=== PATIENT | female | born 1985 | race Caucasian/White ===

== ENCOUNTER 2022-05-06 10:38 | Emergency (ER) | payer MEDICAID, SELFPAY ==
--- NOTE | ~2022-05-06 | CT_ITS ---
EXAMINATION: CT abdomen pelvis w con DATE: 05/06/2022 12:27 INDICATION: Abdominal pain. Vomiting. Fever. TECHNIQUE: Computed tomography (CT) of the abdomen and pelvis was performed with 100 mL Omnipaque 350 intravenous contrast. Automated exposure control and iterative reconstruction technique were employe d. The dose-length product was 207.86 mGy-cm. COMPARISON: None. FINDINGS: The visualized portions of the lung bases are clear without pneumonia or pleural effusion. The heart size is normal. No pericardial effusion. There is a 2.3 cm hypodense mass with hyperdense f ocus in left hepatic lobe. The gallbladder, spleen, pancreas, and adrenal glands are normal. There ar e cysts in the kidneys measuring up to 11 mm on the left. There is an intrauterine device in expected position. There are no dilated loops of bowel. The colon is decompressed. The appendix is normal. Th ere are no pathologically enlarged lymph nodes. There is no free intraperitoneal fluid. The bones are unremarkable. IMPRESSION: 1. 2.3 cm liver mass, probably benign. Abdomen MRI without and with contrast is recommended. Reviewed, dictated and finalized at [facility].
--- NOTE | 2022-05-06 10:42 | ED.LOWEXIN ---
HPI - Extremity Injury (Lower) General Stated Complaint: muscle cramps, leg pain Time Seen by Provider: 05/06/22 10:42 Related Data Allergies Allergy/AdvReac Type Severity Reaction Status Date / Time Penicillins Allergy Mild HIVES Unverified 11/04/08 13:37 Discharge Plan Discharge Follow-up/Referrals: UNKNOWN,DOCTOR [Primary Care Provider] -
[2022-05-06 10:44] VITALS: BP 130/81; PULSE 81; RESP 17; TEMP 36.1; O2SAT 100
--- NOTE | 2022-05-06 10:47 | ED.NAVMDI ---
HPI - Nausea/Vomiting/Diarrhea General Chief complaint: Nausea/Vomiting/Diarrhea Stated complaint: muscle cramps, leg pain Time Seen by Provider: 05/06/22 10:42 Source: patient Mode of arrival: ambulatory History of Present Illness HPI Narrative: 36-year-old female with no significant past medical history presents to the ER with a 4 hour history of -- nausea with multiple episodes of vomiting -- 2 episodes of watery diarrhea -- epigastric pain. No exacerbating or relieving factors. -- Muscle cramps No fever. MD elicited complaint: nausea, vomiting and diarrhea Onset (ago): hour(s) ( started 4 hours ago) Description of vomiting: watery Description of diarrhea: watery Associated nausea: Yes Associated abdominal pain: Yes Location of pain: epigastric Radiation: does not radiate Pain consistency: constant Severity: mild Quality: aching Exacerbating factors: none Relieving factors: none Associated symptoms: myalgias Related Data Allergies Allergy/AdvReac Type Severity Reaction Status Date / Time Penicillins Allergy Mild HIVES Verified 05/06/22 11:01 Review of Systems Review of Systems: All systems reviewed & are unremarkable except as noted in HPI and below Constitutional: Constitutional: Reports as per HPI and Reports no additional constitutional complaints Eyes: Eyes: Reports as per HPI and Reports no additional eye complaints ENT: Reports system reviewed and no additional complaints, except as documented and Reports as per HPI Cardiovascular: Cardiovascular: Reports as per HPI and Reports no additional cardiovascular complaints Respiratory: Respiratory: Reports as per HPI and Reports no additional respiratory complaints Gastrointestinal: Gastrointestinal: Reports as per HPI, Reports no additional gastrointestinal complaints, Reports change in bowel habits, Reports diarrhea, Reports nausea and Reports vomiting Genitourinary: Genitourinary: Reports no additional female genitourinary complaints and Reports as per HPI Musculoskeletal: Musculoskeletal: Reports no additional musculoskeletal complaints and Reports as per HPI Integumentary/Breasts: Skin/Breast: Reports system reviewed and no additional complaints, except as docu and Reports as per HPI Neurologic: Reports system reviewed and no additional complaints, except as documented and Reports as per HPI Psychiatric: Psychiatric: Reports no additional psychiatric complaints and Reports as per HPI Endocrine: Endocrine: Reports no additional endocrine complaints and Reports as per HPI Hematologic/Lymphatic: Hematologic/Lymphatic: Reports no additional hematologic/lymphatic complaints and Reports as per HPI Allergic/Immunologic: Allergic/Immunologic: Reports no additional allergic/immunologic complaints and Reports as per HPI Exam Const: General: cooperative, healthy appearing and comfortable HENMT: Head: normal to inspection, normocephalic and atraumatic Ears: hearing grossly normal bilaterally Face/Nose/Sinus: Normal external nose present and Normal nares present Face and sinus: normal facial exam, sinuses nontender and face symmetric Mouth: Yes Normal oral and palatal mucosa present and Yes lip normal Throat: posterior oropharynx normal Eyes: General: appearance normal, both eyes and all related structures EOM: EOMs intact bilaterally Neck: Neck: normal visual inspection, full ROM, no lymphadenopathy and no meningeal signs Chest: Chest palpation & inspection: normal inspection of the chest Breast/axilla inspection: normal inspection of the breasts Resp: Effort & Inspection: normal respiratory effort Auscultation: clear to auscultation bilaterally Cardio: Jugular venous distension: no JVD Palpation: normal PMI Rate: regular rate Rhythm: regular rhythm Heart sounds: S1 normal heart sound present and S2 normal heart sound present GI: Inspection: normal to inspection Auscultation: normal bowel sounds : General: Yes bimanual renal exam normal bilate
[2022-05-06 10:48] VITALS: BP 130/81; PULSE 82; RESP 16; TEMP 36.5; O2SAT 100
[2022-05-06] MEDS: ONDANSETRON HCL ODT 4 MG TABLET PO (11:02)
[2022-05-06 11:09] LABS: Basophils Absolute Auto 0.05 K/mm3 (0.00-0.10); Basophils Percent Auto 0.3 % (0.0-1.0); Eosinophils Absolute Auto 0.03 K/mm3 (0.02-0.50); Eosinophils Percent Auto 0.2 % (1.0-6.0); Hematocrit 38.9 % (35.0-49.0); Hemoglobin 13.1 g/dL (12.0-15.0); Immature Granulocyte Absolute 0.07 K/mm3 (0.00-0.00); Immature Granulocyte Percent A 0.5 % (0.0-0.0); Lymphocytes Absolute Auto 1.37 K/mm3 (1.10-4.50); Lymphocytes Percent Auto 8.9 % (18.0-42.0); Mean Corpuscular HGB Conc 33.7 g/dL (32.0-36.0); Mean Corpuscular Hemoglobin 31.8 pg (27.0-31.0); Mean Corpuscular Volume 94.4 fL (78.0-102.0); Mean Platelet Volume 12.3 fl (9.2-11.8); Monocytes Absolute Auto 0.57 K/mm3 (0.10-0.90); Monocytes Percent Auto 3.7 % (2.0-11.0); Neutrophils Absolute Auto 13.3 K/mm3 (1.7-7.2); Neutrophils Percent Auto 86.4 % (50.0-70.0); Platelet Count Result 268 K/mm3 (150-420); Red Blood Count 4.12 M/mm3 (4.20-5.40); Red Cell Distribution Width 14.1 % (11.6-14.4); White Blood Count 15.4 K/mm3 (4.8-10.8)
[2022-05-06 11:10] LABS: Appearance Urine Clear (Clear); Bilirubin Urine Negative (Negative); Blood Urine Negative (Negative); Glucose Urine UA Negative (Negative); Ketones Urine Negative (Negative); Leukocyte Esterase Ur Trace (Negative); Nitrate Urine Negative (Negative); Protein Urine 2+ (Negative); Urobilinogen Urine 0.2 mg/dL (0.2-1.0); pH Urine 8.5 (5.0-8.0)
[2022-05-06 11:12] LABS: Pregnancy On Board Control Positive; Urine Pregnancy Test Negative
[2022-05-06 11:16] LABS: Add Urine Microscopic? YES; Bacteria Urine 1+ /hpf; Color Urine Light Yellow (Yellow); RBC Urine 0-2 /hpf (0-2); Squamous Epithelial Cell Urine Moderate /hpf (Few)
--- NOTE | 2022-05-06 11:21 | PC.NURSE ---
patient states nausea is better, provided water at this time and warm blanket
[2022-05-06 11:24] LABS: Alanine Aminotransferase 22 U/L (14-59); Albumin Level 3.9 g/dL (3.4-5.0); Alkaline Phosphatase 77 U/L (46-116); Anion Gap 10 mmol/L (8-16); Aspartate Amino Transferase 19 U/L (15-37); Bilirubin,Total 0.5 mg/dL (0.00-1.00); Blood Urea Nitrogen 12 mg/dL (7-18); Carbon Dioxide 25 mmol/L (21-32); Chloride 108 mmol/L (98-108); Estimated Glomerular Filt Rate > 60; Glucose 121 mg/dL (70-99); Osmolality Calculated 296 mOsm/kg (285-295); Potassium 3.3 mmol/L (3.5-5.1); Sodium 143 mmol/L (136-145); Total Protein 7.5 g/dL (6.4-8.2)
[2022-05-06 11:27] LABS: Lipase 87 U/L (73-393)
[2022-05-06 11:32] LABS: Lactic Acid Reflex 2.1 mmol/L (0.4-2.0)
[2022-05-06] MEDS: HYDROcodone/acetaminophen (*CRX) 5-325 MG TABLET 1 TAB PO (12:08)
[2022-05-06] MEDS: LACTATED RINGERS 1,000 ML 999 ML IV CONT (12:09)
[2022-05-06 13:31] VITALS: BP 129/79; PULSE 81; RESP 16; TEMP 37; O2SAT 99
[2022-05-06 13:33] VITALS: BP 129/79; PULSE 61; RESP 16; TEMP 36.4; O2SAT 100
[2022-05-06 14:04] LABS: Reflex Lactic Acid Yes or No Add Lactic
== END 2022-05-06 13:35 | disposition home or self-care (01) ==
PROVIDERS: Emergency Provider Internal Medicine Critical Care Medicine
DX: K52.9 Noninfective gastroenteritis and colitis, unspecified (principal); E27.9 Disorder of adrenal gland, unspecified
CPT/HCPCS: 36415; 74177; 80053; 81001; 81025; 83605; 83690; 85025; 96360; 99284; A9270; J7120; Q9967

== ENCOUNTER 2023-10-27 03:16 | Emergency (ER) | payer BC, SELFPAY ==
--- NOTE | ~2023-10-27 | CT_ITS ---
EXAMINATION: CT cervical spine wo con DATE: 10/27/2023 03:54 INDICATION: Fall. Left posterior scalp laceration TECHNIQUE: Computed tomography (CT) of the cervical spine was performed without intravenous contrast. Automated exposure control and iterative reconstruction technique were employed. Exam dose: 534.23 mGy-cm total exam DLP. COMPARISON: None FINDINGS: C1 and C2 are normally aligned and the odontoid process is intact. There is moderate loss of disc space height and posterior spurring at C5-6 consistent with moderately prominent degenerative disc disease. The remaining cervical interspaces appear well preserved. No fracture or dislocation or locked facet or prevertebral soft tissue swelling.. IMPRESSION: Moderate degenerative disc disease at C5-6 No fracture or dislocation or locked facet Reviewed, dictated and finalized at [facility]. Reviewed, dictated and finalized at [facility].
--- NOTE | ~2023-10-27 | CT_ITS ---
EXAMINATION: CT brain wo con DATE: 10/27/2023 03:53 INDICATION: Fall. Left posterior scalp laceration TECHNIQUE: Computed tomography (CT) of the head was performed without intravenous contrast. The mA wa s adjusted according to patient size. Iterative reconstruction technique was employed. Exam dose: 60 5.33 mGy-cm total exam DLP. COMPARISON: None FINDINGS: Posterior left parietal occipital cephalohematoma. No skull fracture or could or contrecoup intracranial traumatic injury is evident. Mastoid air cells and included paranasal sinuses are unremarkable. Bilateral vertebral artery and bilateral carotid siphon internal carotid artery calcifications. No intracranial mass lesion or hemorrhage or cerebrovascular accident, midline shift or mass effect. Normal ventricular size. IMPRESSION: Left posterior parietal occipital cephalohematoma; no skull fracture or acute intracrania l finding Cerebral atherosclerosis; no acute intracranial finding Reviewed, dictated and finalized at [facility]. Reviewed, dictated and finalized at [facility]. IMPRESSION: Left posterior parietal occipital cephalohematoma; no skull fractur e or acute intracranial finding Cerebral atherosclerosis; no acute intracranial finding
[2023-10-27 03:20] VITALS: BP 112/90; PULSE 98; RESP 18; TEMP 36.6; O2SAT 98
--- NOTE | 2023-10-27 03:30 | ED.WOUNDLAC ---
HPI - Wound/Laceration General Chief Complaint: Wound/Laceration Stated Complaint: Fall Time Seen by Provider: 10/27/23 03:28 Source: patient Mode of arrival: ambulatory Limitations: no limitations History of Present Illness HPI narrative: Patient is a 37-year-old female with a left parietal scalp laceration. Patient was [place] the bar and fell and hit her head at the bar. This happened prior to arrival. Onset (ago): minute(s) (30) Location: scalp ( Left posterior/side) Place: other ( at the bar) Patient tetanus UTD: Yes ( patient claims she has had 1 in the past 5 years) Context: accidental Associated symptoms: none Treatments prior to arrival: bandage Related Data Home Medications Medication Instructions Recorded Confirmed No Home Medications 10/27/23 10/27/23 Allergies Allergy/AdvReac Type Severity Reaction Status Date / Time Penicillins Allergy Mild HIVES Verified 05/06/22 11:01 Review of Systems Review of Systems: All systems reviewed & are unremarkable except as noted in HPI and below Constitutional: Constitutional: Reports no additional constitutional complaints Eyes: Eyes: Reports no additional eye complaints ENT: Reports system reviewed and no additional complaints, except as documented Cardiovascular: Cardiovascular: Reports no additional cardiovascular complaints Respiratory: Respiratory: Reports no additional respiratory complaints Gastrointestinal: Gastrointestinal: Reports no additional gastrointestinal complaints Genitourinary: Genitourinary: Reports no additional female genitourinary complaints Musculoskeletal: Musculoskeletal: Reports no additional musculoskeletal complaints Integumentary/Breasts: Skin/Breast: Reports system reviewed and no additional complaints, except as docu Neurologic: Reports system reviewed and no additional complaints, except as documented Psychiatric: Psychiatric: Reports no additional psychiatric complaints Endocrine: Endocrine: Reports no additional endocrine complaints Hematologic/Lymphatic: Hematologic/Lymphatic: Reports no additional hematologic/lymphatic complaints Allergic/Immunologic: Allergic/Immunologic: Reports no additional allergic/immunologic complaints Exam Const: General: healthy appearing Nutritional Appearance: well nourished Orientation/consciousness: patient oriented x3 Other: alcohol intoxicated and belligerent HENMT: Head: normal to inspection Ears: external ears normal Face/Nose/Sinus: Normal external nose present Eyes: Conjunctivae: conjunctivae normal Pupils: Equal, round and reactive pupils present EOM: EOMs intact bilaterally Neck: Neck: normal visual inspection Chest: Chest palpation & inspection: normal inspection of the chest Resp: Effort & Inspection: normal respiratory effort and not labored Auscultation: clear to auscultation bilaterally Cardio: Rate: regular rate Rhythm: regular rhythm Heart sounds: no murmurs GI: Inspection: non-distended GI Palp: Yes Soft to palpation, No Tenderness to palpation present (GI) and No Guarding due to palpation present (GI) Auscultation: normal bowel sounds Back/Spine/Pelvis: Back: no CVA tenderness Skin: General skin exam: normal color Rashes: no rashes Wounds: wound noted and wounds noted Other: left parietal / posterior scalp 4 cm linear laceration with bleeding Neuro: General: patient oriented x3 Cranial nerves: Yes Nystagmus not present Speech: normal speech Extrem: General: normal to inspection Psych: Mental Status: mental status grossly normal Affect: normal affect Attitude: not cooperative Other: patient is being difficult and uncooperative due to alcohol intoxication Course Vital Signs Vital signs: Vital Signs Temperature 36.6 C 10/27/23 03:20 Pulse Rate 98 10/27/23 03:20 Respiratory Rate 18 10/27/23 03:20 Blood Pressure 112/90 10/27/23 03:20 Pulse Oximetry 98 10/27/23 03:20 Oxygen Delivery Room Air
[2023-10-27 04:15] VITALS: BP 124/85; PULSE 88; RESP 18; TEMP 36.6; O2SAT 98
== END 2023-10-27 04:15 | disposition home or self-care (01) ==
PROVIDERS: Emergency Provider Emergency Medicine
DX: S01.01XA Laceration without foreign body of scalp, initial encounter (principal); W19.XXXA Unspecified fall, initial encounter
CPT/HCPCS: 12001; 70450; 72125; 99284

== ENCOUNTER 2024-01-27 11:38 | Emergency (ER) | payer BC, SELFPAY ==
[2024-01-27 11:40] VITALS: BP 132/91; PULSE 95; RESP 20; TEMP 37.1; O2SAT 96
--- NOTE | 2024-01-27 11:48 | ED.LOWEXIN ---
HPI - Extremity Injury (Lower) General Chief Complaint: Extremity Injury, Lower Stated Complaint: left calf injury Time Seen by Provider: 01/27/24 11:47 Source: patient Mode of arrival: ambulatory Limitations: no limitations History of Present Illness HPI Narrative: Patient is a 38-year-old female with a left calf injury while playing in [place]. She is moving around and stepped up onto a surface and felt a pop in the left calf region. No concerns for DVT at this time. This was an acute event. She can walk on the lower extremity but typically on the Tippy toes. This happened yesterday. complaint: leg injury ( Left calf) Onset (ago): day(s) (2) Type of Injury: other ( left calf injury after playing in the [place]) Place: street/outdoors Severity: moderate Severity scale (1-10): 4 Relieving factors: immobilization Exacerbating factors: movement and palpation Context: jumping Associated symptoms: snap/pop sensation and able to partially bear weight Other symptoms: none Related Data Allergies Allergy/AdvReac Type Severity Reaction Status Date / Time Penicillins Allergy Mild HIVES Verified 01/27/24 11:41 Review of Systems Review of Systems: All systems reviewed & are unremarkable except as noted in HPI and below Constitutional: Constitutional: Reports no additional constitutional complaints Eyes: Eyes: Reports no additional eye complaints ENT: Reports system reviewed and no additional complaints, except as documented Cardiovascular: Cardiovascular: Reports no additional cardiovascular complaints Respiratory: Respiratory: Reports no additional respiratory complaints Gastrointestinal: Gastrointestinal: Reports no additional gastrointestinal complaints Genitourinary: Genitourinary: Reports no additional female genitourinary complaints Musculoskeletal: Musculoskeletal: Reports no additional musculoskeletal complaints Integumentary/Breasts: Skin/Breast: Reports system reviewed and no additional complaints, except as docu Neurologic: Reports system reviewed and no additional complaints, except as documented Psychiatric: Psychiatric: Reports no additional psychiatric complaints Endocrine: Endocrine: Reports no additional endocrine complaints Hematologic/Lymphatic: Hematologic/Lymphatic: Reports no additional hematologic/lymphatic complaints Allergic/Immunologic: Allergic/Immunologic: Reports no additional allergic/immunologic complaints Exam Const: General: healthy appearing Nutritional Appearance: well nourished Orientation/consciousness: patient oriented x3 HENMT: Head: normal to inspection Ears: external ears normal Face/Nose/Sinus: Normal external nose present Eyes: Conjunctivae: conjunctivae normal Pupils: Equal, round and reactive pupils present EOM: EOMs intact bilaterally Neck: Neck: normal visual inspection Chest: Chest palpation & inspection: normal inspection of the chest Resp: Effort & Inspection: normal respiratory effort and not labored Auscultation: clear to auscultation bilaterally Cardio: Rate: regular rate Rhythm: regular rhythm Heart sounds: no murmurs GI: Inspection: non-distended GI Palp: Yes Soft to palpation and No Tenderness to palpation present (GI) Auscultation: normal bowel sounds : General: Yes bladder normal to palpation Back/Spine/Pelvis: Back: no CVA tenderness Skin: General skin exam: normal color Rashes: no rashes Wounds: no wounds Neuro: General: patient oriented x3 Cranial nerves: Yes Nystagmus not present Speech: normal speech Extrem: General: normal to inspection, no clubbing, cyanosis or edema and no pedal edema Other: left lower calf has tenderness at the distal gastrocnemius; Achilles tendon is intact grossly; slight opening to the gastroc muscle with tenderness Psych: Mental Status: mental status grossly normal Affect: normal affect Attitude: cooperative Course Vital Signs Vital signs: Vital Signs Temperature 37.1 C /07
[2024-01-27 12:06] VITALS: BP 132/91; PULSE 95; RESP 20; TEMP 37.1; O2SAT 96
== END 2024-01-27 12:06 | disposition home or self-care (01) ==
LOC: CHSED 12:04
PROVIDERS: Emergency Provider Emergency Medicine
DX: S86.812A Strain of other muscle(s) and tendon(s) at lower leg level, left leg, initial encounter (principal); X58.XXXA Exposure to other specified factors, initial encounter; Y92.838 Other recreation area as the place of occurrence of the external cause
CPT/HCPCS: 99283

== ENCOUNTER 2025-04-21 09:26 | Emergency (ER) | payer BC, SELFPAY ==
[2025-04-21] VITALS (7 sets, daily range): BP systolic 125–131; BP diastolic 87–99; PULSE 99; RESP 20; TEMP 36.5; O2SAT 98–100
--- NOTE | ~2025-04-21 | CT_ITS ---
Exam: CT abdomen and pelvis without contrast Clinical History: [Right flank pain. ] Comparison: [ 05/06/2022] Technique: Multiple axial CT images of the abdomen and pelvis were obtained without IV contrast. Sagittal and coronal reformatted images were obtained. FINDINGS: Lung bases: [Clear ] Liver: [ No mass.] [ No intrahepatic biliary duct dilatation.] Gallbladder: [ No wall thickening or stones.] Common bile duct: [ Normal caliber.] [ No stones.] Spleen: [ Within normal limits.] Pancreas: [ No mass. No pancreatic fluid collection.] Adrenals: [ No masses.] Kidneys: [ No masses. No hydronephrosis.][ Small amount of fat stranding about the right kidney.] No CT evidence for renal, or ureteral calculi. Lymph nodes: [ No adenopathy in the abdomen or pelvis.] Stomach, small bowel and colon: [ No bowel wall thickening or obstruction.] Peritoneum cavity: [ No mesenteric fat stranding or fluid.] Bladder: [ Small amount of nondependent air in the bladder.] No bladder calculi. Osseous structures: [ No acute fracture or destructive lesion.] [ Multilevel degenerative change in the visualized spine.] Abdominal aorta: [ No aneurysm.] Additional findings: [ None of significance.] IMPRESSION: 1. No CT evidence for renal, ureteral or bladder calculi. No hydronephrosis. 2. Small amount of fat stranding about the right kidney. Differential includes a fluid overload state, recently passed stone or infectious process. 3. Small amount of nondependent air in the bladder. Differential includes cystitis or recent instrumentation. Reviewed, dictated and finalized at location Q. IMPRESSION: 1. No CT evidence for renal, ureteral or bladder calculi. No hydronephrosis. 2. Small amount of fat stranding about the right kidney. Differential includes a fluid overload state, recently passed stone or infectious process. 3. Small amount of nondependent air in the bladder. Differential includes cysti tis or recent instrumentation.
--- NOTE | 2025-04-21 09:37 | ED_ITS ---
HPI - Female Genitourinary General Chief complaint: Urogenital-Female Stated complaint: uti symptoms Source: patient Mode of arrival: ambulatory Limitations: no limitations History of Present Illness HPI Narrative: 39-year-old female presents to the ED with a 5 day history of -- dysuria and hematuria. Increased frequency of micturition -- right flank pain. no radiation of the pain. Pain is worse with coughing and deep breathing. -- subjective fever -- nausea -- headache MD elicited complaint: dysuria, UTI and flank pain Onset (ago): day(s) ( 5 days) Location of symptoms: RLQ and flank Severity: moderate Female Urogenital Radiation: Non-Radiating Quality of pain: aching Consistency: constant Urinary symptoms: Dysuria, Urgency and Frequency Exacerbating factors: none Relieving factors: none Treatment prior to arrival: none Date of Last Menstrual Period: 04/12/25 Related Data Allergies Allergy/AdvReac Type Severity Reaction Status Date / Time Penicillins Allergy Mild HIVES Verified 04/21/25 09:28 Review of Systems 2 Review of Systems: All systems reviewed & are unremarkable except as noted in HPI and below Constitutional: Constitutional: Reports as per HPI, Reports no additional constitutional complaints and Reports chills Eyes: Eyes: Reports as per HPI and Reports no additional eye complaints ENT: Reports system reviewed and no additional complaints, except as documented and Reports as per HPI Cardiovascular: Cardiovascular: Reports as per HPI and Reports no additional cardiovascular complaints Respiratory: Respiratory: Reports as per HPI and Reports no additional respiratory complaints Gastrointestinal: Gastrointestinal: Reports as per HPI and Reports no additional gastrointestinal complaints Genitourinary: Genitourinary: Reports no additional female genitourinary complaints, Reports as per HPI, Reports hematuria, Reports dysuria and Reports flank pain Musculoskeletal: Musculoskeletal: Reports no additional musculoskeletal complaints and Reports as per HPI Integumentary/Breasts: Skin/Breast: Reports system reviewed and no additional complaints, except as docu and Reports as per HPI Neurologic: Reports system reviewed and no additional complaints, except as documented and Reports as per HPI Psychiatric: Psychiatric: Reports no additional psychiatric complaints and Reports as per HPI Endocrine: Endocrine: Reports no additional endocrine complaints and Reports as per HPI Hematologic/Lymphatic: Hematologic/Lymphatic: Reports no additional hematologic/lymphatic complaints and Reports as per HPI Allergic/Immunologic: Allergic/Immunologic: Reports no additional allergic/immunologic complaints and Reports as per HPI Exam 2 Narrative: blood pressure 131/99 Const: General: healthy appearing and no acute distress Nutritional Appearance: well nourished Orientation/consciousness: patient oriented x3 Limitations: no limitations HENMT: Head: normal to inspection Ears: external ears normal F gabino/Nose/Sinus: Normal external nose present Face and sinus: normal facial exam Mouth: Yes Normal oral and palatal mucosa present Throat: posterior oropharynx normal Eyes: Conjunctivae: conjunctivae normal Pupils: Equal, round and reactive pupils present EOM: EOMs intact bilaterally Direct Ophthalmoscopy: no photophobia Neck: Neck: normal visual inspection, no lymphadenopathy and no meningeal signs Chest: Chest palpation & inspection: normal inspection of the chest Resp: Effort & Inspection: normal respiratory effort Auscultation: clear to auscultation bilaterally Cardio: Rate: regular rate Rhythm: regular rhythm GI: GI Palp: Yes Soft to palpation Auscultation: normal bowel sounds O ther: tenderness right CVA angle./ Left flank : General: Yes CVA tenderness ( right CVA tenderness) on the right Back/Spine/Pelvis: Back: CVA tenderness Skin: General skin exam: normal color Rashes: no rashes Wounds: no wounds Neuro: General: patient oriented x3, moves all extremities, no meningeal signs, no focal motor deficits and CN's II-XI intact bilaterally Cranial nerves: Yes Nystagmus not present Speech: normal speech Gait exam (Neuro): Normal gait present Extrem: General: normal to inspection and no clubbing, cyanosis or edema Psych: Appearance: grossly normal Mental Status: mental status grossly normal Affect: normal affect Course Course Emergency Course: Dysuria/hematuria / increased frequency of micturition is suggestive of urinary tract infection. Right flank pain with tenderness in the CVA angle is suggestive of pyelonephritis. Patient was noted to have a positive UA with increased white cells, leukocyte Estrace and nitrite. CT of abdomen and pelvis revealed fat stranding around the right kidney. No stones noted. Vital Signs Vital signs: Vital Signs Temperature 36.5 C 04/21/25 09:30 Pulse Rate 99 04/21/25 09:30 Respiratory Rate 20 04/21/25 09:30 Blood Pressure 131/99 H 04/21/25 09:30 Pulse Oximetry 100 04/21/25 09:30 Oxygen Delivery Room Air 04/21/25 09:30 Temperature 36.5 C 04/21/25 09:30 Pulse Rate 99 04/21/25 09:30 Respiratory Rate 20 04/21/25 09:30 Blood Pressure 131/99 H 04/21/25 09:30 Pulse Oximetry 100 04/21/25 09:30 Oxygen Delivery Room Air 04/21/25 09:30 MDM - Female Genitourinary MDM Narrative Medical decision making narrative: Right pyelonephritis Differential Diagnosis Differential diagnosis: Likely urinary tract infection Medical Records Attestation: I reviewed the patient's medical records. Lab Data Attestation: I reviewed the patient's lab results. 04/21/25 09:51 04/21/25 09:51 Labs: Lab Results 04/21/25 04/21/25 Range/Units 09:40 09:51 WBC 11.9 H (4.8-10.8) K/mm3 RBC 4.11 L (4.20-5.40) M/mm3 Hgb 13.6 (12.0-15.0) g/dL Hct 40.9 (35.0-49.0) % MCV 99.5 (78.0-102.0) fL MCH 33.1 H (27.0-31.0) pg MCHC 33.3 (32-36) g/dL RDW 11.9 (11.6-14.4) % Plt Count 248 (150-420) K/mm3 MPV 10.9 (9.2-11.8) fl Immature Gran % (Auto) 0.5 H (0.0-0.0) % Neut % (Auto) 83.5 H (50.0-70.0) % Lymph % (Auto) 8.1 L (18.0-42.0) % [place] % (Auto) 7.3 (2.0-11.0) % Eos % (Auto) 0.3 L (1.0-6.0) % Baso % (Auto) 0.3 (0.0-1.0) % Lymph # (Auto) 0.96 L (1.10-4.50) K/mm3 [place] # (Auto) 0.86 (0.10-0.90) K/mm3 Eos # (Auto) 0.03 (0.02-0.50) K/mm3 Baso # (Auto) 0.03 (0.00-0.10) K/mm3 Abs Immat Gran (auto) 0.06 H (0.00-0.00) K/mm3 Absolute Neuts (auto) 9.91 H (1.70-7.20) K/mm3 Absolute Nucleated RBC 0.00 (0.00-0.00) K/mm3 Nucleated RBC % 0.0 (0-0.0) % Sodium 137 (137-145) mmol/L Potassium 3.6 (3.4-5.0) mmol/L Chloride 101 (98-107) mmol/L Carbon Dioxide 26 (22-30) mmol/L Anion Gap 10 (4-12) mmol/L BUN 7 (7-17) mg/dL Creatinine 0.77 (0.7-1.0) mg/dL Estim Creat Clear Calc 61 ml/min Estimated GFR > 60 (59 - ) Glucose 106 (65-110) mg/dL Calculated Osmolality 282 L (285-295) mOsm/kg Lactic Acid 0.8 (0.4-2.0) mmol/L Calcium 9.2 (8.4-10.2) mg/dL Total Bilirubin 0.4 (0.2-1.3) mg/dL AST 31 (14-36) U/L ALT 23 (6-35) U/L Alkaline Phosphatase 70 (38-126) U/L Total Protein 8.9 H (6.3-8.2) g/dL Albumin 4.3 (3.5-5.1) g/dL Lipase 27 (23-300) U/L Urine Color Yellow (Yellow) Urine Appearance Sl cloudy A (Clear) Urine pH 6.0 (5.0-8.0) Ur Specific [place] 1.025 H (1.010-1.020) Urine Protein 2+ H (Negative) Urine Glucose (UA) Negative (Negative) Urine Ketones Negative (Negative) Ur Blood (Man) 2+ H (Negative) Urine Nitrate Positive H (Negative) Urine Bilirubin Negative (Negative) Urine Urobilinogen 0.2 (0.2-1.0) mg/dL Leukocyte Esterase Rfl 2+ H (Negative) EPIFANIO/UL Urine RBC 6-10 H (0-2) /hpf Urine WBC 51-75 H (0-3) /hpf Ur Squamous Epith Cells Few (Few) /hpf Urine Bacteria 2+ H (None) /hpf Urine Test Negative Discharge Plan Discharge Clinical Impression: Pyelonephritis, Acute flank pain Patient Disposition: Home Condition: Stable Instructions: Antibiotic Form, Kidney Infection (ED) Patient Language: Latvian Prescriptions: New ciprofloxacin HCl [Cipro] 500 mg tablet 500 mg PO Q12H Qty: 14 0RF Follow-up/Referrals: Zeke Huston DO [Physician, Family Practice] Time of Disposition: 11:11
[2025-04-21 09:45] LABS: Add Urine Microscopic? YES; Glucose Urine UA Negative (Negative); Leukocyte Esterase Ur 2+ LEU/UL (Negative); Nitrate Urine Positive (Negative); Specific Grav Ur 1.025 (1.010-1.020)
[2025-04-21 09:52] LABS: Appearance Urine Sl Cloudy (Clear)
[2025-04-21 09:54] LABS: Hematocrit 40.9 % (35.0-49.0); Hemoglobin 13.6 g/dL (12.0-15.0); Immature Granulocyte Percent A 0.5 % (0.0-0.0); Lymphocytes Absolute Auto 0.96 K/mm3 (1.10-4.50); Mean Corpuscular HGB Conc 33.3 g/dL (32-36); Mean Corpuscular Hemoglobin 33.1 pg (27.0-31.0); Mean Corpuscular Volume 99.5 fL (78.0-102.0); Nucleated Red Blood Cells Absolute Auto 0.00 K/mm3 (0.00-0.00); Nucleated Red Blood Cells Perc 0.0 % (0-0.0); Platelet Count Result 248 K/mm3 (150-420); Red Blood Count 4.11 M/mm3 (4.20-5.40); White Blood Count 11.9 K/mm3 (4.8-10.8)
--- OUTSIDE RECORDS SUMMARY | 2025-04-21 10:02 | XMS_ITS | Clinical Summary ---
Author Organization [facility] Address [address] [place] [address] Phone Care Team Providers Care Tonal Regulator Name Role Phone Provider, None Primary Care Provider Unavailabl e Allergies Active Allergy Reactions Criticality Noted Date Comments Penicillins Hives Medium 09/05/2017 Pt was told she had an allergy to penicillins as a child Medications azithromycin (ZITHROMAX Z-AIDE) 250 MG TabletIndication s:Strep throat 2 tab(s) daily for 1 day, then 1 tab(s) daily for days 2-5. 6 Tab 11/23/2018 Active chlorhexidine (PERIDEX) 0.12 % Solution 15 mL by Swish & Spit route 2 times daily. 473 mL 09/22/2021 Active Active Problems No known active problems Social History Tobacco Use Types Packs/Day Years Used Date Smoking Tobacco: Never Smokeless Tobacco: Never Alcohol Use Standard Drinks/Week Comments Yes 0 (1 standard drink = 0.6 oz pur e alcohol) Comments No Sex and Gender Information Value Date Recorded Sex Assigned at Not on file Legal Sex Female 11:18 PM CDT Gender Identity Not on file Sexual Orientation Not on file Last Filed Vital Signs Vital Sign Reading Time Taken Comments Blood Pressure 141/92 09/22/2021 2:31 PM EXCHANGE FLOOR MANAGER Pulse 99 09/22/2021 2:31 PM EXCHANGE FLOOR MANAGER Temperature 36.2 C (97.2 F) 09/22/2021 2:30 PM EXCHANGE FLOOR MANAGER Respiratory Rate 20 09/22/2021 2:31 PM EXCHANGE FLOOR MANAGER Oxygen Saturation 99% 09/22/2021 2:31 PM EXCHANGE FLOOR MANAGER Inhaled Oxygen Concentration - - Weight 63.5 kg (140 lb) 09/22/2021 2:31 PM EXCHANGE FLOOR MANAGER Height 152.4 cm (5') 09/22/2021 2:31 PM EXCHANGE FLOOR MANAGER Body Mass Index 27.34 09/22/2021 2:31 PM EXCHANGE FLOOR MANAGER Plan of Treatment Health Maintenance Due Date Last Done Comments Hepatitis C Virus (HCV) Screening 1985 TdaP Immunization 1985 Hepatitis B Immunization (1 of 3 - 19+ 3-dose series) 2004 Pap Smear 2006 Human Papillomavirus (HPV) Immunization (1 - 3-dose SCDM series) 2012 Cervical Cancer Screening (CCS) 11/07/2015 HPV/Cotest 11/07/2015 Influenza Immunization (#1) 2025 SARS-COV-2 Immunization ( season) 2025 Respiratory Syncytial Virus (RSV) Immunization (Adult) (1 - 1-dose 75+ series) 2060 Meningococcal Immunization (ACWY) Aged Out No longer eligible based on patient's age to complete this topic Pneumococcal Immunization Combined Aged Out No longer eligible based on patient's age to complete this topic Rotavirus Immunization Aged Out No lo nger eligible based on patient's age to complete this topic Care Teams Tonal Regulator Relationship Specialty Start Date End Date Provider, None [place] PCP - General 08/22/18
--- OUTSIDE RECORDS SUMMARY | 2025-04-21 10:02 | XMS_ITS | Clinical Summary ---
Author Organization [facility] Address [address] [place] [address] Care Team Providers Care Network Operations Center Technician Name Role Phone Jose Carter MD Primary Care Provider [phone] Source Comments [facility],non-owned Affiliates and Associated Physician Practices is amultiple site organization consisting of ambulatory clinics and hospital sitesin [place], [place], [place] and [place]. This disclosure is being madepursuant to the Care Everywhere program and may not contain all information available regarding this patient. Last updated 18.[facility] Allergies Active Allergy Reactions Criticality Noted Date Comments Penicillins Urticaria Medium 09/05/2017 Pt was told she had an allergy to penicillins as a child Medications * Be aware that medications may not be up to date on this document. Alwaysverify current medications with the patient. No known medications Social History Tobacco Use Types Packs/Day Years Used Date Smoking Tobacco: Light Smoker Smokeless Tobacco: Never Comments No Sex and Gender Information Value Date Recorded Sex Assigned at Not on file Legal Sex Female 11:20 AM STEREO PLOTTER OPERATOR Gender Identity Not on file Sexual Orientation Not on file Last Filed Vital Signs Vital Sign Reading Time Taken Comments Blood Pressure 116/74 09/05/2017 2:11 PM STEREO PLOTTER OPERATOR Pulse 110 09/05/2017 2:11 PM STEREO PLOTTER OPERATOR Temperature 37.8 C (100 F) 09/05/2017 2:11 PM STEREO PLOTTER OPERATOR Respiratory Rate - - Oxygen Saturation 98% 09/05/2017 2:11 PM STEREO PLOTTER OPERATOR Inhaled Oxygen Concentration - - Weight 57.6 kg (127 lb) 09/05/2017 2:11 PM STEREO PLOTTER OPERATOR Height 152.4 cm (5') 09/05/2017 2:11 PM STEREO PLOTTER OPERATOR Body Mass Index 24.8 09/05/2017 2:11 PM STEREO PLOTTER OPERATOR Plan of Treatment Health Maintenance Due Date Last Done Comments HIV SCREENING 2000 HEPATITIS C SCREENING 11/02/2003 DTAP/TDAP/TD VACCINES (1 - Tdap) 2004 HEPATITIS B VACCINE (1 of 3 - 19+ 3-dose series) 2004 HPV VACCINE (1 - 3-dose SCDM series) 2012 DEPRESSION SCREENING 07/23/2024 COVID-19 VACCINE (1 - 2023-2 5 season) 2025 INFLUENZA VACCINE (#1) 2025 ZOSTER VACCINE (1 of 2) 11/07/2035 HIB VACCINE Aged Out No longer eligi ble based on patient's age to complete this topic MENINGOCOCCAL (Group B) VACC INE SHARED DECISION-MAKING Aged Out No longer eligibl e based on patient's age to complete this topic MENINGOCOCCAL GROUPS A/C/Y/W VACCINE Aged Out No longer eligible b ased on patient's age to complete this topic PNEUMOCOCCAL VACCINE Aged Out No long er eligible based on patient's age to complete this topic Insurance [place] [place] YOST [id number] [employer] Care Teams Network Operations Center Technician Relationship Specialty Start Date End Date Jose Carter MD [address] [place] [id number] PCP - General 02/25/21
--- OUTSIDE RECORDS SUMMARY | 2025-04-21 10:02 | XMS_ITS | Clinical Summary ---
Author Organization [address] Address [address] [place] [address] Care Team Providers Care Equipment Engineer Name Role Phone No, Physician Primary Care Provider [phone] Allergies Active Allergy Reactions Criticality Noted Date Comments Penicillins Medications azithromycin (ZITHROMAX) 250 mg tabletIndication s:Pharyngitis, unspecified etiology Take 2 tablets the first day, then 1 tablet daily for 4 days. 6 tablet 12/06/2020 Active Active Problems No known active problems Social History Tobacco Use Types Packs/Day Years Used Date Smoking Tobacco: Never Personal Safety Answer Date Recorded Getting School Help Needed Not on file 09/16 Comments Unknown Sex and Gender Information Value Date Recorded Sex Assigned at Not on file Legal Sex Female 6:54 PM KILN PACKER Gender Identity Not on file Sexual Orientation Not on file Obstetrics History Last Filed Vital Signs Vital Sign Reading Time Taken Comments Blood Pressure 110/70 12/06/2020 9:14 AM CDT Pulse 127 12/06/2020 9:14 AM CDT Temperature 36.3 C (97.4 F) 12/06/2020 9:14 AM CDT Respiratory Rate 16 12/06/2020 9:14 AM CDT Oxygen Saturation 98% 12/06/2020 9:14 AM CDT Inhaled Oxygen Concentration - - Weight 60 kg (132 lb 3.2 oz) 12/06/2020 9:14 AM CDT Height 152.4 cm (5') 12/06/2020 9:14 AM CDT Body Mass Index 25.82 12/06/2020 9:14 AM CDT Plan of Treatment Not on file Care Teams Equipment Engineer Relationship Specialty Start Date End Date No, Physician PCP - General 12/06/20
[2025-04-21 10:08] LABS: Pregnancy On Board Control Positive
[2025-04-21 10:15] LABS: Alanine Aminotransferase 23 U/L (6-35); Albumin Level 4.3 g/dL (3.5-5.1); Alkaline Phosphatase 70 U/L (38-126); Anion Gap 10 mmol/L (4-12); Aspartate Amino Transferase 31 U/L (14-36); Bilirubin,Total 0.4 mg/dL (0.2-1.3); Blood Urea Nitrogen 7 mg/dL (7-17); Calcium 9.2 mg/dL (8.4-10.2); Carbon Dioxide 26 mmol/L (22-30); Chloride 101 mmol/L (98-107); Estimated CRCL calculation 61 ml/min; Estimated Glomerular Filt Rate > 60; Glucose 106 mg/dL (65-110); Lipase 27 U/L (23-300); Osmolality Calculated 282 mOsm/kg (285-295); Potassium 3.6 mmol/L (3.4-5.0); Sodium 137 mmol/L (137-145); Total Protein 8.9 g/dL (6.3-8.2)
[2025-04-21] MEDS: CIPROFLOXACIN 500 MG TAB PO (10:16)
[2025-04-21] MEDS: KETOROLAC 30 MG/ML VIAL (*BKC) IM (10:16)
--- OUTSIDE RECORDS SUMMARY | 2025-04-21 10:37 | XMS_ITS | Clinical Summary ---
Author Organization [facility] Address [address] [place] [address] Care Team Providers Care Twisthand Name Role Phone Jose Carter MD Primary Care Provider [phone] Source Comments [facility],non-owned Affiliates and Associated Physician Practices is amultiple site organization consisting of ambulatory clinics and hospital sitesin [place], [place], [place] and [place]. This disclosure is being madepursuant to the Care Everywhere program and may not contain all information available regarding this patient. Last updated 18.[facility] Allergies Active Allergy Reactions Criticality Noted Date [...] on file Legal Sex Female 11:20 AM FIRST MATE Gender Identity Not on file Sexual Orientation Not on file Last Filed Vital Signs Vital Sign Reading Time Taken Comments Blood Pressure 116/74 09/05/2017 2:11 PM FIRST MATE Pulse 110 09/05/2017 2:11 PM FIRST MATE Temperature 37.8 C (100 F) 09/05/2017 2:11 PM FIRST MATE Respiratory Rate - - Oxygen Saturation 98% 09/05/2017 2:11 PM FIRST MATE Inhaled Oxygen Concentration - - Weight 57.6 kg (127 lb) 09/05/2017 2:11 PM FIRST MATE Height 152.4 cm (5') 09/05/2017 2:11 PM FIRST MATE Body Mass Index 24.8 09/05/2017 2:11 PM FIRST MATE Plan of Treatment Health Maintenance Due Date [...] complete this topic Insurance [place] [place] YOST [id number] [employer] Care Teams Twisthand Relationship Specialty Start Date End Date Jose Carter MD [address] [place] [id number] PCP - General 02/25/21
--- OUTSIDE RECORDS SUMMARY | 2025-04-21 10:37 | XMS_ITS | Clinical Summary ---
Author Organization [address] Address [address] [place] [address] Care Team Providers Care Direct Care Specialist Name Role Phone No, Physician Primary Care Provider [phone] Allergies Active Allergy Reactions Criticality Noted Date [...] on file Legal Sex Female 6:54 PM CABIN FURNISHINGS INSTALLER Gender Identity Not on file Sexual Orientation [...] of Treatment Not on file Care Teams Direct Care Specialist Relationship Specialty Start Date End Date No, Physician PCP - General 12/06/20
--- OUTSIDE RECORDS SUMMARY | 2025-04-21 10:37 | XMS_ITS | Clinical Summary ---
Author Organization [facility] Address [address] [place] [address] Phone Care Team Providers Care Speeder Tender Name Role Phone Provider, None Primary Care [...] Comments Blood Pressure 141/92 09/22/2021 2:31 PM FLYER MAKER Pulse 99 09/22/2021 2:31 PM FLYER MAKER Temperature 36.2 C (97.2 F) 09/22/2021 2:30 PM FLYER MAKER Respiratory Rate 20 09/22/2021 2:31 PM FLYER MAKER Oxygen Saturation 99% 09/22/2021 2:31 PM FLYER MAKER Inhaled Oxygen Concentration - - Weight 63.5 kg (140 lb) 09/22/2021 2:31 PM FLYER MAKER Height 152.4 cm (5') 09/22/2021 2:31 PM FLYER MAKER Body Mass Index 27.34 09/22/2021 2:31 PM FLYER MAKER Plan of Treatment Health Maintenance Due Date [...] age to complete this topic Care Teams Speeder Tender Relationship Specialty Start Date End Date Provider, None [place] PCP - General 08/22/18
--- NOTE | 2025-04-26 01:41 | PC.NURSE ---
Final urine culture C&S report reflects pt is on correct antibx for e choli. Pt was d/c home on Cipro and is taking correct antibx.
== END 2025-04-21 11:46 | disposition home or self-care (01) ==
PROVIDERS: Emergency Provider Internal Medicine Critical Care Medicine; Referring Provider Family Medicine
DX: N12 Tubulo-interstitial nephritis, not specified as acute or chronic (principal)
CPT/HCPCS: 36415; 74176; 80053; 81001; 81025; 83605; 83690; 85025; 87086; 87186; 96372; 99284; A9270; J1885